=== PATIENT | female | born 1970 | race Caucasian/White ===

== ENCOUNTER 2017-05-02 16:40 | Emergency (ER) | payer MEDICAID ==
[~2017-05-02] VITALS: Ht 165.1 cm; Wt 55.0 kg
[2017-05-02 16:43] VITALS: BP 122/77
== END 2017-05-02 19:05 | disposition left against medical advice (07) ==
LOC: ER 16:59
DX: R07.9 Chest pain, unspecified (principal); Z53.21 Procedure and treatment not carried out due to patient leaving prior to being seen by health care provider